=== PATIENT | female | born 2000 | race Caucasian/White ===

== ENCOUNTER 2024-03-12 12:53 | Outpatient (AMB) | payer OTHER, SELFPAY ==
[2024-03-12 13:00] VITALS: BP 120/72; BMI 21.6
--- NOTE | 2024-03-12 13:00 | A.OFFPC_ITS ---
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 ( Depression/ ADHD Meds) Intake Note: New patient , depression/ADHD Packing Machine Feeder Required: No Accompanied by: Self / Same As Patient Allergies No Known Allergies [No Known Allergies*] Allergy (Verified 03/12/24 13:15) Medication List - Last Reconciled 03/12/24 by Kelle Singh MD escitalopram oxalate mg PO levonorgestrel-ethinyl estrad 0.1-20 mg-mcg (Vienva) 1 tab PO DAILY Tobacco use date assessed: 03/12/24 Dental Screening Dental Screen Date: 03/12/24 Did you have a dental visit in the last 12 months?: Yes Did you have a dental problem in the last 6 months where you did not have access to dental care?: No Was dental information given to patient?: Patient has dentist HPI HPI Comments History of Present Illness Details This is a 23-year-old female with mild major depression stable with escitalopram that comes for her physical as a new patient. Last Pap smear was 2020 was normal. No chest pain or shortness of breath. Complains of hair loss. [facility] Surgical History History of wisdom tooth extraction Family History Father Hypertension Mother IBS (irritable bowel syndrome) Maternal Grandfather Stroke Maternal Grandmother Breast cancer Paternal Grandfather Stroke Family/Other Substance use disorder Mental health disorder Social History (Updated 03/12/24 @ 13:21 by Kelle Singh MD) Housing: Apartment Alcohol intake: current Alcohol intake frequency: a few times a week Alcohol type: beer and hard liquor Patient Tobacco Use Status: Never used Tobacco e-Cigarette/Vaping Use: Never Used Second Hand Smoke Exposure: No service: No Current occupational status: employed Current occupational exposures/hazards: No Cognitive needs: No Hearing needs: No Vision needs: No Questionnaire PHQ-9 Over the last 2 weeks, how often have you been bothered by any of the following problems? 1. Little interest or pleasure in doing things: not at all 2. Feeling down, depressed, or hopeless: not at all 3. Trouble falling or staying asleep, or sleeping too much: not at all 4. Feeling tired or having little energy: not at all 5. Poor appetite or overeating: not at all 6. Feeling bad about yourself - or that you are a failure or have let yourself or your family down: not at all 7. Trouble concentrating on things, such as reading the newspaper or watching television: more than half the days 8. Moving or speaking so slowly that other people could have noticed. Or the opposite - being so fidgety or restless that you have been moving around a lot more than usual: more than half the days 9. Thoughts that you would be better off or of hurting yourself in some way: not at all Total score: 4 Depression Screening Interpretation: Positive Depression Screening Follow-up: Existing condition and In treatment Depression Screening Done: Yes 53715 - PHQ-9 Billing: Yes Source: Developed by Drs. Mingo Mcduffie, Radha Rodríguez, Pro Munoz and colleagues, with an educational claudio from [employer]. Thrive Questionnaire Date Thrive assessed: 03/12/24 I am a: Patient What is your living situation today?: I have a steady place to live Within the past 12 months, did the food you bought not last and you didn't have the money to get more?: Never true Within the past 12 months, did you worry whether your food would run out before you got money to buy more?: Never true Do you have trouble paying for medicines?: No Do you have trouble getting transportation to medical appointments?: No Do you have trouble paying your heating and electricity bill?: No Do you have trouble taking care of your child, family member or friend?: No Do you have trouble with day-to-day activities such as bathing, preparing meals, shopping, managing finances, etc.?: No Are you currently unemployed and looking for a job?: No Are you interested in more education?: No Please select the resources that you would like help with: None Currently or been in a relationship where the following occur: no concerns reported THRIVE Score: 0 AUDIT C Alcohol Use Questionnaire (AUDIT-C) 1. How often do you have a drink containing alcohol?: 2-3 times a week 2. How many drinks containing alcohol do you have on a typical day when you are drinking?: 1 or 2 3. How often do you have six or more drinks on one occasion?: Never Total Score: 3 TERRY-7 AMB Questionnaire TERRY-7 Date TERRY - 7 assessed: 03/12/24 Feeling nervous, anxious, or on edge: 1 = Several days Not being able to stop or control worryin = Not at all Worrying too much about different things: 1 = Several days Trouble relaxin = More than half the days Being so restless that it is hard to sit still: 1 = Several days Becoming easily annoyed or irritable: 1 = Several days Feeling afraid as if something awful might happen: 1 = Several days Total TERRY-7 score (0-4 normal; 5-9 mild; 10-14 moderate; 15-21 severe): 7 Source: Developed by Drs. Mingo Mcduffie, Radha Rodríguez, Pro Munoz and colleagues, with an educational claudio from [employer]. TERRY-7 Assessment Billing TERRY-7 Assessment Tool: TERRY-7 Assessment 85732 Review of Systems Const All systems reviewed & are unremarkable except as noted in HPI and below Eyes Reports no additional complaints, Denies change in vision and Denies other visual disturbances Card Denies chest pain at rest, Denies chest pain with activity, Denies edema, Denies irregular heart rhythm, Denies claudication, Denies dyspnea, Denies dyspnea on exertion, Denies orthopnea, Denies paroxysmal nocturnal dyspnea and Denies slow heart rate Resp Denies cough, Denies dyspnea and Denies dyspnea on exertion Musc Denies atrophy, Denies deformity and Denies limited range of motion Physical exam (Primary Care) Vital Signs: Last Vital Signs BP 120/72 03/12/24 13:00 BMI result Body Mass Index 21.6 Tobacco/Smoking Status: Tobacco use Status Tobacco use date assessed 03/12/24 03/12/24 13:10 Patient Tobacco Use Status Never used Tobacco 03/12/24 13:21 e-Cigarette/Vaping Use Never Used 03/12/24 13:21 PHQ-9: PHQ-9 Score PHQ-9: Total score 4 03/12/24 13:22 Depression Screening Interpretation: Positive Depression Screening Follow-up: Existing condition and In treatment Thrive Assessment: Date of Thrive Assessment Date Thrive assessed 03/12/24 03/12/24 13:10 Currently or been in a relationship where the following occur: no concerns reported Const Orientation/consciousness: patient oriented x3 Resp Effort & Inspection: normal respiratory effort Auscultation: clear to auscultation bilaterally Cardio Jugular venous distension: no JVD Rate: regular rate Rhythm: regular rhythm Heart sounds: S1 normal heart sound present and S2 normal heart sound present GI Inspection: Yes normal to inspection Palpation (GI): Soft to palpation and nontender Auscultation: normal bowel sounds Skin General skin exam: no rashes or lesions noted Neuro General: patient oriented x3 and no focal motor deficits Extrem General: Yes full ROM Psych Appearance: grossly normal Assessment and Plan Assessment & Plan (1) Physical exam: Code(s): Z00.00 - Encounter for general adult medical examination without abnormal findings Plan: Repeat in a year. (2) Mild major depression: Code(s): F32.0 - Major depressive disorder, single episode, mild Plan: Continue escitalopram. Orders: Orders Lipid Panel Today Z00.00 - Encounter for general adult medical examination without abnormal findings Thyroid Stimulating Hormone Today L65.9 - Nonscarring hair loss, unspecified Complete Blood Count Auto Diff Today L65.9 - Nonscarring hair loss, unspecified Comprehensive [place]. Panel Fast Today Z00.00 - Encounter for general adult medical examination without abnormal findings HIV Ab/Ag Today Z11.3 - Encounter for screening for infections with a predominantly sexual mode of transmission Syphilis Screen Today Z11.3 - Encounter for screening for infections with a predominantly sexual mode of transmission CT NG by PCR Today Z11.3 - Encounter for screening for infections with a predominantly sexual mode of transmission Urine Culture Today Z20.2 - Contact with and (suspected) exposure to infections with a predominantly sexual mode of transmission Medications: New escitalopram oxalate 2 mg (2 mL) PO DAILY 180 mL 3RF 90 days Coding Level of Care Code New Pt Prev Care 18-39yr(91052 Diagnoses Physical exam Z00.00 Mild major depression F32.0 Additional Codes TERRY-7 Assessment Billing - TERRY-7 Assessment Tool: TERRY-7 Assessment 44080 ([id number]) Time Spent (min) 31
== END 2024-03-12 13:39 | disposition home or self-care (01) ==
PROVIDERS: PCP Internal Medicine; Visit Provider Internal Medicine
DX: Z00.00 Encounter for general adult medical examination without abnormal findings (principal); F32.0 Major depressive disorder, single episode, mild
CPT/HCPCS: 99385

== ENCOUNTER 2024-03-18 09:20 | Outpatient (REF) | payer OTHER, SELFPAY ==
[2024-03-18 09:43] LABS: MANUAL DIFF FLAG NO
[2024-03-18 09:51] LABS: Eosinophils Absolute Auto 0.1 X10*3/uL (0.0-0.4); Eosinophils Percent Auto 2.6 % (0-4); Hematocrit 42.2 % (37.0-47.0); Hemoglobin 14.5 g/dl (12.0-16.0); Lymphocytes Absolute Auto 1.4 X10*3/uL (1.2-4.9); Lymphocytes Percent Auto 46.6 % (20-40); Mean Corpuscular HGB Conc 34.4 g/dl (31.0-35.0); Mean Corpuscular Hemoglobin 30.4 pg (27.0-33.0); Mean Corpuscular Volume 88.5 fL (80.0-98.0); Mean Platelet Volume 10.2 fL (9.4-12.3); Monocytes Absolute Auto 0.2 X10*3/uL (0.1-1.2); Monocytes Percent Auto 7.2 % (2-11); Neutrophils Absolute Auto 1.3 x10*3/uL (2.0-8.3); Neutrophils Percent Auto 42.6 % (45-73); Platelet Count 223 X10*3/uL (160-400); Red Blood Count 4.77 X10*6/uL (4.20-5.50); Red Cell Distribution Width 12.4 % (11.0-16.0); White Blood Count 3.1 X10*3/uL (4.8-10.8)
[2024-03-18 10:39] LABS: Alanine Aminotransferase 16 U/L (0-31); Albumin Level 4.1 g/dL (3.5-5.0); Alkaline Phosphatase 34 U/L (39-117); Anion Gap 14 (12-20); Aspartate Amino Transferase 21 U/L (5-31); Bilirubin Total 0.6 mg/dL (0.0-1.0); Blood Urea Nitrogen 7 mg/dL (9-16); Calcium 9.3 mg/dL (8.4-10.2); Carbon Dioxide 24 mmol/L (22-29); Chloride 109 mmol/L (96-108); Cholesterol 126 mg/dL (<200); Estimated Glomerular Filt Rate > 60; Glucose Fasting 92 mg/dL (60-99); HDL Cholesterol 64 mg/dL (>40); LDL Cholesterol Calculated 51 mg/dL (<100); Potassium 4.5 mmol/L (3.3-5.1); Sodium 142 mmol/L (135-145); Total Protein 6.5 g/dL (6.5-8.0); Triglycerides 57 mg/dL (<150)
[2024-03-18 10:55] LABS: Thyroid Stimulating Hormone 1.25 uIU/mL (0.32-4.0)
[2024-03-18 12:32] LABS: CT PCR NOT DETECTED (Not Detect.); NG PCR NOT DETECTED (Not Detect.)
[2024-03-19 08:02] LABS: HIV AB/AG Nonreactive (Nonreactive); HIV Num 1 0.05 S/CO (0.00-0.99)
[2024-03-19 08:23] LABS: Syphilis Screen Nonreactive (Nonreactive)
== END 2024-03-18 09:21 | disposition home or self-care (01) ==
LOC: HO.LAB 09:20
PROVIDERS: PCP Internal Medicine; Visit Provider Internal Medicine
DX: Z00.00 Encounter for general adult medical examination without abnormal findings (principal); L65.9 Nonscarring hair loss, unspecified; Z11.3 Encounter for screening for infections with a predominantly sexual mode of transmission; Z20.2 Contact with and (suspected) exposure to infections with a predominantly sexual mode of transmission
CPT/HCPCS: 0353U; 80053; 80061; 84443; 85025; 86780; 87086; 87389

== ENCOUNTER → 2024-04-11 11:20 | Outpatient (BNV) | payer OTHER, SELFPAY | PROVIDERS: PCP Internal Medicine; Referring Provider Internal Medicine; Visit Provider Internal Medicine Medical Oncology | DX: D72.819 Decreased white blood cell count, unspecified (principal) | CPT/HCPCS: 99204; 99213 ==

== ENCOUNTER 2024-11-14 10:23 | Outpatient (REF) | payer OTHER, SELFPAY ==
[2024-11-14 11:03] LABS: Baso%MD 0.8 %; Eos%MD 3.9 %; Hematocrit 41.6 % (37.0-47.0); IG%MD 0.3 %; Lymph%MD 47.3 %; Mean Corpuscular HGB Conc 36.1 g/dl (31.0-35.0); Mean Corpuscular Hemoglobin 30.9 pg (27.0-33.0); Mean Corpuscular Volume 85.8 fL (80.0-98.0); Mean Platelet Volume 10.2 fL (9.4-12.3); Mono%MD 7.3 %; Neut%MD 40.4 %; Platelet Count 214 X10*3/uL (160-400); Red Blood Count 4.85 X10*6/uL (4.20-5.50); Red Cell Distribution Width 11.8 % (11.0-16.0); White Blood Count 3.6 X10*3/uL (4.8-10.8)
[2024-11-14 11:17] LABS: Alanine Aminotransferase 24 U/L (0-31); Albumin Level 4.8 g/dL (3.5-5.0); Alkaline Phosphatase 58 U/L (39-117); Anion Gap 7 (12-20); Aspartate Amino Transferase 22 U/L (5-31); Bilirubin Total 0.8 mg/dL (0.0-1.0); Blood Urea Nitrogen 10 mg/dL (9-16); Calcium 8.9 mg/dL (8.4-10.2); Carbon Dioxide 27 mmol/L (22-29); Chloride 110 mmol/L (96-108); Estimated Glomerular Filt Rate > 60; Glucose Random 89 mg/dL (60-115); Lactate Dehydrogenase 158 U/L (122-220); Potassium 4.4 mmol/L (3.3-5.1); Sodium 140 mmol/L (135-145); Total Protein 7.4 g/dL (6.5-8.0)
[2024-11-14 12:45] LABS: HBS Num1 26.18 mIU/mL (0-7.99); HBc Num1 0.07 S/CO (0.00-0.79); HBsAGNum1 0.36 S/CO (0.00-0.99); Hepatitis B Core Antibody Nonreactive (Nonreactive); Hepatitis B Surface Antigen Negative (Negative); ~Hepatitis B Surface Antibody REACTIVE (Nonreactive)
[2024-11-14 15:18] LABS: Basophils Abs Manual 0.1 X10*3/uL (0.0-0.2); Basophils Percent Manual 2 % (0-2); Eosinophils Absolute Manual 0.1 X10*3/uL (0.0-0.4); Eosinophils Percent Manual 4 % (0-4); Lymphocytes Absolute Manual 1.9 X10*3/uL (1.2-4.9); Lymphocytes Percent Manual 52 % (20-40); Monocytes Absolute Manual 0.3 X10*3/uL (0.1-1.2); Monocytes Percent Manual 7 % (2-11); Neutrophils Percent Manual 35 % (45-73)
[2024-11-14 15:19] LABS: Band Neutrophils Percent 0 % (3-5); Large Platelet PRESENT; Neutrophils Absolute Manual 1.3 X10*3/uL (2.0-8.3); Platelet Estimate NORMAL (NORMAL); Platelet Morphology Comment NOTED; RBC Morphology NORMAL
[2024-11-17 17:03] LABS: TS Negative Control Passed; TS Panel A 0; TS Panel B 0; TS Positive Control Passed; TSpotTB Negative (Negative)
[2024-11-17 18:28] LABS: Varicella IgG Antibody 8.73 S/CO
[2024-11-17 19:02] LABS: Rubella IgG Antibody 7.28 Index
== END 2024-11-14 10:24 | disposition home or self-care (01) ==
LOC: HO.LAB 10:23
PROVIDERS: Absent Provider Internal Medicine Medical Oncology; PCP Internal Medicine; Visit Provider Internal Medicine
DX: D72.819 Decreased white blood cell count, unspecified (principal); Z23 Encounter for immunization; Z11.1 Encounter for screening for respiratory tuberculosis
CPT/HCPCS: 36415; 80053; 83615; 85007; 85027; 86481; 86704; 86706; 86735; 86762; 86765; 86787; 87340

== ENCOUNTER 2025-03-16 14:24 | Outpatient (AMB) | payer OTHER, SELFPAY ==
--- NOTE | 2025-03-16 14:32 | A.OFFPC_ITS ---
Vital Signs 03/16/25 14:34 Height 5 ft 9 in Weight 152 lb BMI 22.4 BP 126/80 Blood Pressure Location Lt brachial Position Sitting Intake Visit Reasons: annual exam Intake Note: Patient here for an annual physical exam Operations Support Representative Required: No Accompanied by: Self / Same As Patient Allergies No Known Allergies [No Known Allergies*] Allergy (Verified 03/16/25 15:09) Medication List - Last Reconciled 03/16/25 by Kelle Singh MD dextroamphetamine-amphetamine 7.5 mg (Adderall) 7.5 mg PO DAILY 30 days escitalopram oxalate 2 mg (2 mL) PO DAILY 90 days Tobacco use date assessed: 03/16/25 Dental Screening Dental Screen Date: 03/16/25 Did you have a dental visit in the last 12 months?: Yes Did you have a dental problem in the last 6 months where you did not have access to dental care?: No Was dental information given to patient?: Patient has dentist HPI HPI Comments History of Present Illness Details The patient is a 24-year-old female presenting with an annual physical examination and various health concerns. She reports experiencing intermittent chest pain associated with anxiety but denies any left-sided discomfort. Her PHQ-9 score reflects mild depressive symptoms for which she is currently treated with escitalopram. Additionally, she experiences sensations consistent with POTS, feeling blood pooling in her limbs, accompanied by occasional palpitations but no significant cardiovascular symptoms otherwise. Her concern for joint hypermobility stems from discomfort after physical activities and suggests possible past muscle strains during exercises. Notably, she has come across a spot on her back that has undergone alterations and slight bleeding, warranting further investigation. - Tdap vaccine received two months ago - Last Pap smear at age 20; HPV status u nknown, possibly negative - Drinking described as social with few episodes per week - No smoking history, father with hypert ension, mother with IBS PFSH Surgical History History of wisdom tooth extraction Family History Father Hypertension Mother IBS (irritable bowel syndrome) Maternal Grandfather Stroke Maternal Grandmother Breast cancer Paternal Grandfather Stroke Family/Other Substance use disorder Mental health disorder Social History Household Members: Family Housing: Apartment Alcohol intake: current Alcohol intake frequency: a few times a week Alcohol type: beer and hard liquor Patient Tobacco Use Status: Never used Tobacco e-Cigarette/Vaping Use: Never Used Second Hand Smoke Exposure: No Substance Use Type: Marijuana service: No Current occupational status: employed Current occupational exposures/hazards: No Cognitive needs: No Hearing needs: No Vision needs: No Questionnaire PHQ-9 Over the last 2 weeks, how often have you been bothered by any of the following problems? 1. Little interest or pleasure in doing things: several days 2. Feeling down, depressed, or hopeless: several days 3. Trouble falling or staying asleep, or sleeping too much: more than half the days 4. Feeling tired or having little energy: several days 5. Poor appetite or overeating: several days 6. Feeling bad about yourself - or that you are a failure or have let yourself or your family down: several days 7. Trouble concentrating on things, such as reading the newspaper or watching television: more than half the days 8. Moving or speaking so slowly that other people could have noticed. Or the opposite - being so fidgety or restless that you have been moving around a lot more than usual: several days 9. Thoughts that you would be better off or of hurting yourself in some way: not at all Total score: 10 Depression Screening Interpretation: Positive Depression Screening Follow-up: Existing condition, In treatment and Follow-up Visit Requested Depression Screening Done: Yes 34153 - PHQ-9 Billing: Yes Source: Developed by Drs. Mingo Mcduffie, Radha Rodríguez, Pro Munoz and colleagues, with an educational claudio from [employer]. Thrive Questionnaire Date Thrive assessed: 03/16/25 I am a: Patient What is your living situation today?: I have a steady place to live Within the past 12 months, did the food you bought not last and you didn't have the money to get more?: Sometimes True Within the past 12 months, did you worry whether your food would run out before you got money to buy more?: Sometimes True Do you have trouble paying for medicines?: No Do you have trouble getting transportation to medical appointments?: No Do you have trouble paying your heating and electricity bill?: No Do you have trouble taking care of your child, family member or friend?: No Do you have trouble with day-to-day activities such as bathing, preparing meals, shopping, managing finances, etc.?: No Are you currently unemployed and looking for a job?: No Are you interested in more education?: Yes Please select the resources that you would like help with: None Currently or been in a relationship where the following occur: No concerns reported THRIVE Score: 2 AUDIT C Alcohol Use Questionnaire (AUDIT-C) 1. How often do you have a drink containing alcohol?: 2-3 times a week 2. How many drinks containing alcohol do you have on a typical day when you are drinking?: 3 or 4 3. How often do you have six or more drinks on one occasion?: Less than monthly Total Score: 5 TERRY-7 AMB Questionnaire TERRY-7 Date TERRY - 7 assessed: 03/16/25 Feeling nervous, anxious, or on edge: 0 = Not at all Not being able to stop or control worryin = Not at all Worrying too much about different things: 0 = Not at all Trouble relaxin = Several days Being so restless that it is hard to sit still: 0 = Not at all Becoming easily annoyed or irritable: 1 = Several days Feeling afraid as if something awful might happen: 1 = Several days Total TERRY-7 score (0-4 normal; 5-9 mild; 10-14 moderate; 15-21 severe): 3 Source: Developed by Drs. Mingo Mcduffie, Radha Rodríguez, Pro Munoz and colleagues, with an educational claudio from [employer]. TERRY-7 Assessment Billing TERRY-7 Assessment Tool: TERRY-7 Assessment 67092 Review of Systems Const All systems reviewed & are unremarkable except as noted in HPI and below Card Denies chest pain at rest, Denies chest pain with activity, Denies edema, Denies irregular heart rhythm, Denies claudication, Denies dyspnea, Denies dyspnea on exertion, Denies orthopnea, Denies paroxysmal nocturnal dyspnea and Denies slow heart rate Resp Denies cough, Denies dyspnea and Denies dyspnea on exertion Physical exam (Primary Care) Vital Signs: Last Vital Signs BP 126/80 03/16/25 14:34 BMI result Body Mass Index 22.4 Tobacco/Smoking Status: Tobacco use Status Tobacco use date assessed 03/16/25 03/16/25 14:47 Patient Tobacco Use Status Never used Tobacco 03/16/25 14:47 e-Cigarette/Vaping Use Never Used 03/16/25 14:47 PHQ-9: PHQ-9 Score PHQ-9: Total score 10 03/16/25 15:13 Depression Screening Interpretation: Positive Depression Screening Follow-up: Existing condition, In treatment and Follow-up Visit Requested Thrive Assessment: Date of Thrive Assessment Date Thrive assessed 03/16/25 03/16/25 14:47 Currently or been in a relationship where the following occur: No concerns reported HENMT Head: Yes normal to inspection, Yes normocephalic and Yes atraumatic Ears: external ears normal Eyes General: appearance normal, both eyes and all related structures Eyelids: Yes eyelids normal Conjunctivae: conjunctivae normal Neck Neck: Yes normal visual inspection and Yes supple Resp Effort & Inspection: normal respiratory effort Auscultation: clear to auscultation bilaterally Cardio Jugular venous distension: no JVD Rate: regular rate Rhythm: regular rhythm Heart sounds: S1 normal heart sound present and S2 normal heart sound present GI Inspection: Yes normal to inspection Palpation (GI): Soft to palpation and nontender Auscultation: normal bowel sounds Skin General skin exam: no rashes or lesions noted Neuro General: no focal motor deficits Extrem General: Yes full ROM Psych Appearance: grossly normal Coding Level of Care Code Est Pt Level 3 (04599) Est Pt Prev Care 18-39y(01958) Diagnoses Physical exam Z00.00 Skin lesion L98.9 Polyarthralgia M25.50 Mild major depression F32.0 Additional Codes TERRY-7 Assessment Billing - TERRY-7 Assessment Tool: TERRY-7 Assessment 86895 ([id number]) PHQ-9 - 40302 - PHQ-9 Billing: Yes ([id number]) Time Spent (min) 34 Assessment & Plan Assessment & Plan (1) Physical exam: Code(s): Z00.00 - Encounter for general adult medical examination without abnormal findings Category: Medical (2) Skin lesion: Code(s): L98.9 - Disorder of the skin and subcutaneous tissue, unspecified Category: Medical (3) Polyarthralgia: Code(s): M25.50 - Pain in unspecified joint Category: Medical (4) Mild major depression: Code(s): F32.0 - Major depressive disorder, single episode, mild Category: Medical Plan The patient's management includes maintaining her current treatment with escitalopram. Her symptoms warranting further specialist evaluation via cardiology for POTS, rheumatology for joint hypermobility, and dermatology for the recent skin lesion were discussed. Healthcare access through these referrals will be pursued to obtain diagnostic clarity and guide subsequent management steps. Anxiety and depressive symptoms will remain under current therapeutic surveillance, considering previous satisfactory clinical responses. Further screening or testing protocols were not immediate necessities given prior findings, and her Pap smear schedule remains consistent with typical guidelines. Patient was informed and verbally consented to the use of an ambient scribe for clinic note documentation during this visit. I discussed with the patient the necessity and rationale for referrals to cardiology, rheumatology, and dermatology, emphasizing the importance of specialist evaluations for her complex symptoms. I explained the symptoms consistent with possible POTS and hypermobility and reassured her regarding a structured plan for diagnostic clarity and management, mindful of insurance coverage implications. She was informed about her stable health maintenance st atus, including her vaccine and Pap smear schedules. Possible side effects or changes involving escitalopram continue to be monitored, given the noted PHQ-9 score with ongoing treatment. We plan a follow-up in a year but encouraged her to return with any emerging concerns or exacerbations. Orders: Referrals Cardiology Referral R00.2 - Palpitations Rheumatology Referral M25.50 - Pain in unspecified joint Dermatology Referral L98.9 - Disorder of the skin and subcutaneous tissue, unspecified Patient Instructions: - Continue taking escitalopram as prescribed - Attend the cardiology, rheumatology, and dermatology appointments - Monitor any changes in chest pain, joint issues, or skin lesions - Avoiding smoking and limit alcohol consumption - Return for follow-up in one year, or sooner if symptoms worsen or new symptoms arise
--- OUTSIDE RECORDS SUMMARY | 2025-03-16 14:32 | XMS_ITS | Clinical Summary ---
Author Organization [facility] Address [address] [place] [id number] Phone Care Team Providers Care Lube Attendant Name Role Phone Unavailable Primary Care Provider Unavailabl e Medications [id number]-28 0.3-30 MG-MCG per tabletIndications: Oral contraceptive pill surveillance TAKE 1 TABLET BY MOUTH EVERY DAY 84 tablet 8 Active Immunizations Immunization Administration Dates Next Due DTaP 07/06/2003, 1,01/09/2000,11/10,1999 HPV, Quadrivalent 11/04/2013,12/17/2012,09/05/20 12 Hep B, ped/adol 09/27/2000,03/23/2000,01/09/2000 Hib (PRP-T) 09/27/2000, 0,1999,08/22 IPV 07/06/2003, 1,1999,08/22 Influenza 08/06/2009,07/31/2008,08/23/2007 Influenza, injectable, MDCK, preservative free, quadrivalent 01/17/2017 Influenza, injectable, quadr ivalent, preservative free 11/04/2013 Influenza, intranasal, quadrivalent 11/29/2015 Influenza, intranasal, trivalent 09/05/2012,07/30,07/07/2010 MMR 06/16/2004,07/04/2000 Meningococcal Conj (Menactra) MCV4P 01/17/2017,0 07/07/2010 Pneumococcal Conjugate 09/27/2000,07/04/2000 Tdap 07/07/2010 Varicella 07/19/2007,07/04/2000 Family History Relation Name Status Comments Father Father: asthma, hypertension, seasonal allergies, alcohol abuse Father's Sister Paternal Aun t: mental health problem Maternal Grandfather Mat GFa ther: heart related sudden , migraine, colon cancer, hypertension, alcohol abuse, TIAs Maternal Grandmother Mat Gr- GMother: breast cancer. BRCA neg; other MGGM stroke in her 80s Mother Mother: tonyos is Other 1 ADD, breast can cer, hearing problem - genetic, hearing aid in 30s Other 2 ADD, food and s easonal allergies Other 3 ADD, scoliosis Other 4 ADD-brother, le arning disability-brother Other 5 asthma, allergi es Other 6 asthma, hyperte nsion, seasonal allergies, alcohol abuse Other 7 breast cancer. BRCA neg; other MGGM stroke in her 80s Other 8 hearing loss at younger age Other 9 heart related s udden , migraine, colon cancer, hypertension, alcohol abuse, TIAs Other 10 mental health p roblem Other 11 scoliosis Paternal Grandfather Pat GFa ther: asthma, allergies Social History Tobacco Use Types Packs/Day Years Used Date Smoking Tobacco: Never Assessed Comments Unknown Sex and Gender Information Value Date Recorded Sex Assigned at Not on file Legal Sex Female 11:09 PM EST Gender Identity Not on file Sexual Orientation Not on file Last Filed Vital Signs Vital Sign Reading Time Taken Comments Blood Pressure 108/81 01/17/2017 12:00 AM EDT Pulse 91 01/17/2017 12:00 AM EDT Temperature 37.1 ??C (98.7 ??F) 12/13/2016 12:[address] Respiratory Rate - - Oxygen Saturation 98% 12/13/2016 12:00 AM EST Inhaled Oxygen Concentration - - Weight 61.5 kg (135 lb 9.6 oz) 01/17/2017 12:00 AM EDT Height 175.3 cm (5' 9 ) 01/17/2017 12:00 AM EDT Body Mass Index 20.02 01/17/2017 12:00 AM EDT Plan of Treatment Health Maintenance Due Date Last Done Comments DTaP,Tdap,and Td Vaccines (7 - Td or Tdap) 07/07/2020 07/07/2010, 07/06/2003, 01/16/2001, Additional history exists Influenza Vaccines (#1) 2024 01/18/20 17, 11/29/2015, 11/04/2013, Additional history exists COVID-19 Vaccine ( season) 2024 02/12/2021, 01/20/2021 HIB Vaccines Completed 09/27/2000, 12/27, 1999, Additional history exists Hepatitis B Vaccines Completed 09/27/2000, 03/23/2000, 01/09/2000 Pneumococcal Vaccine Completed 09/27/2000, 07/04/20 00 IPV Vaccines Completed 07/06/2003, 12/28, 1999, Additional history exists MMR Vaccines Completed 06/16/2004, 07/04/2000 Varicella Vaccines Completed 07/19/2007, 07/04/2000 HPV Vaccines Completed 11/04/2013, 11/29, 09/05/2012 Meningococcal Vaccine Completed 01/17/2017, 010 Hepatitis A Vaccines Aged Out No long er eligible based on patient's age to complete this topic Men B Vaccine Aged Out No longer elig ible based on patient's age to complete this topic Procedures * Due to [place] [employer] law, this organization might not be sharing sensitive test results. Procedure Name Priority Date/Time Associated Diagnosis Comments CHLAMYDIALGONORRHOEAL DETECTION BY PCR Routine 01/18/2017 12:00 AM EDT from Last 3 Months or Most Recently Relevant to Health Maintenance Results * Due to [place] [employer] law, this organization might not be sharing sensitive test results. * CHLAMYDIALGONORRHOEAL DETECTION BY PCR (01/18/2017 12:00 AM EDT) CHLAMYDIA PCR Not Detected CON VERTED LABS Comment: Ayana Akbar ??01/17/2017 06:04:02 PM > sent to [facility] Lonnie Vale 01/19/2017 09:44:09 PM > Lori Carranza 01/20/2017 02:31:49 PM > Negative Reason: Received -[facility] Lab Order Events Director GC PCR Not Detected CONVERT ED LABS Comment: Ayana Akbar ??01/17/2017 06:04:02 PM > sent to [facility] Lonnie Vale 01/19/2017 09:44:09 PM > Lori Carranza 01/20/2017 02:31:49 PM > Negative Reason: Received -[facility] Lab Order Events Director 01/18/2017 Narrative CONVERTED LABS - 01/18/2017 12:00 AM EDT Chlamydial/Gonorrhoeal Detection by PCR us Lori Carranza NP EXTERNAL RESULTS CONSOLE Final R esult CONVERTED LABS from Last 3 Months or Most Recently Relevant to Health Maintenance
--- OUTSIDE RECORDS SUMMARY | 2025-03-16 14:32 | XMS_ITS | Encounter Summary ---
Author Organization [facility] Address [address] [place] [phone] Phone Care Team Providers Care Clinical Manager Name Role Phone Zohreh Perez MD Primary Care Provider Unavailabl e Reason for Visit * Reason Comments Med Refill Encounter Details Date Type Department Care Team ([facility] st Contact Info) Description 04/16/2018 Refill [facility] - [address], [address] [place] [address] Lori Carranza, [address] [place] [address] Oral contraceptive pill surveillance (Primary Dx) Social History Tobacco Use Types Packs/Day Years Used Date Smoking Tobacco: Never Assessed Comments Unknown Sex and Gender Information Value Date Recorded Sex Assigned at Not on file Legal Sex Female 11:09 PM EST Gender Identity Not on file Sexual Orientation Not on file documented as of this encounter Plan of Treatment Not on file documented as of this encounter Visit Diagnoses Diagnosis Oral contraceptive pill surveillance- Primary documented in this encounter Care Teams Clinical Manager Relationship Specialty Start Date End Date Zohreh Perez MD PCP - General Pediatrics 01/23/20 06/12/21 documented as of this encounter
--- OUTSIDE RECORDS SUMMARY | 2025-03-16 14:32 | XMS_ITS | Encounter Summary ---
Author Organization [facility] Address [address] [place] [id number] Phone Care Team Providers Care Revenue Enforcement Collection Agent Name Role Phone Zohreh Perez MD Primary Care Provider Unavailabl e Encounter Details Date Type Department Care Team (Late st Contact Info) Description 06/06/2017 Conversion Encounter [facility] [place] [address], [address] [place] [address] Lori Carranza NP [address] [place] [address] Social History Tobacco Use Types Packs/Day Years Used Date Smoking Tobacco: Never Assessed Comments Unknown Sex and Gender Information Value Date Recorded Sex Assigned at Not on file Legal Sex Female 11:09 PM EST Gender Identity Not on file Sexual Orientation Not on file documented as of this encounter Plan of Treatment Not on file documented as of this encounter Visit Diagnoses Not on filedocumented in this encounter Care Teams Revenue Enforcement Collection Agent Relationship Specialty Start Date End Date Zohreh Perez MD PCP - General Pediatrics 01/23/20 06/12/21 documented as of this encounter
--- OUTSIDE RECORDS SUMMARY | 2025-03-16 14:32 | XMS_ITS | Encounter Summary ---
Author Organization [facility] Address [address] [place] [phone] Phone Care Team Providers Care Velocity Shooter Name Role Phone Zohreh Perez MD Primary Care Provider Unavailabl e Reason for Visit * Reason Comments Med Refill Encounter Details Date Type Department Care Team (Late st Contact Info) Description 06/13/2018 Refill [facility] - [address], [address] [place] [address] Lori Carranza NP [address] [place] [address] Oral contraceptive pill surveillance Social History Tobacco Use Types Packs/Day Years Used Date Smoking Tobacco: Never Assessed Comments Unknown Sex and Gender Information Value Date Recorded Sex Assigned at Not on file Legal Sex Female 11:09 PM EST Gender Identity Not on file Sexual Orientation Not on file documented as of this encounter Miscellaneous Notes * Telephone Encounter - Lori Carranza NP - 06/13/2018 2:23 PM EDT Transferred out. documented in this encounter Plan of Treatment Not on file documented as of this encounter Visit Diagnoses Diagnosis Oral contraceptive pill surveillance documented in this encounter Care Teams Velocity Shooter Relationship Specialty Start Date End Date Zohreh Perez MD PCP - General Pediatrics 01/23/20 06/12/21 documented as of this encounter
[2025-03-16 14:34] VITALS: BP 126/80; BMI 22.4
== END 2025-03-16 15:49 | disposition home or self-care (01) ==
LOC: HO.HMCH 14:25
PROVIDERS: PCP Internal Medicine; Visit Provider Internal Medicine
DX: Z00.00 Encounter for general adult medical examination without abnormal findings (principal); M25.50 Pain in unspecified joint; L98.9 Disorder of the skin and subcutaneous tissue, unspecified; F32.0 Major depressive disorder, single episode, mild

== ENCOUNTER → 2025-03-16 14:24 | Outpatient (BNVA) | payer OTHER, SELFPAY | PROVIDERS: PCP Internal Medicine; Visit Provider Internal Medicine | DX: Z00.00 Encounter for general adult medical examination without abnormal findings (principal); L98.9 Disorder of the skin and subcutaneous tissue, unspecified; M25.50 Pain in unspecified joint; F32.0 Major depressive disorder, single episode, mild; Z79.899 Other long term (current) drug therapy | CPT/HCPCS: 96127; 99212; 99395 ==